=== PATIENT | male | born 1955 | race Caucasian/White ===

== ENCOUNTER 2017-02-03 22:50 | Emergency (ER) | payer MEDICAID ==
[~2017-02-03] VITALS: Ht 172.7 cm; Wt 76.1 kg
[2017-02-03 22:52] VITALS: BP 149/92
[2017-02-03] MEDS ORDERED: IBUPROFEN 200 MG TABLET PO ONE (23:30)
[2017-02-03] MEDS ORDERED: IBUPROFEN 200 MG TABLET ONE (23:33)
== END 2017-02-04 00:57 | disposition home or self-care (01) ==
LOC: ED 02-04 00:51
DX: S62.647A Nondisplaced fracture of proximal phalanx of left little finger, initial encounter for closed fracture (principal); S60.222A Contusion of left hand, initial encounter; S60.042A Contusion of left ring finger without damage to nail, initial encounter; S60.052A Contusion of left little finger without damage to nail, initial encounter; W18.30XA Fall on same level, unspecified, initial encounter; Y93.89 Activity, other specified; Y92.410 Unspecified street and highway as the place of occurrence of the external cause; Y99.9 Unspecified external cause status
CPT/HCPCS: 99284

== ENCOUNTER 2018-05-29 18:10 | Inpatient (IN) | payer OTHER ==
[~2018-05-29] VITALS: Ht 177.8 cm; Wt 79.6 kg
[2018-05-29] MEDS ORDERED: SODIUM CHLORIDE 0.9% 1,000ML IVBOLUS ONE (18:30)
[2018-05-29 18:57] LABS: BASOPHILS # (AUTO) 0.05 x10^3/uL (0-0.1); BASOPHILS % (AUTO) 0 % (0-1); EOSINOPHILS # (AUTO) 0.03 x10^3/uL (0-0.4); EOSINOPHILS % (AUTO) 0 % (1-7); LYMPHOCYTES # (AUTO) 1.11 x10^3/uL (1-3.4); LYMPHOCYTES % (AUTO) 7 % (22-44); MD NO; MEAN CORPUSCULAR HEMOGLOBIN 28.9 pg (27.5-34.5); MEAN CORPUSCULAR VOLUME 84.8 fL (81-97); MEAN PLATELET VOLUME 7.3 fL (7.4-10.4); MONOCYTES # (AUTO) 0.94 x10^3/uL (0.2-0.8); MONOCYTES % (AUTO) 6 % (2-9); NEUTROPHILS # (AUTO) 13.08 x10^3/uL (1.8-6.8); NEUTROPHILS % (AUTO) 86 % (42-75); PLATELET COUNT 449 x10^3/uL (130-400); RED BLOOD COUNT 4.81 x10^6/uL (4.38-5.82); RED CELL DISTRIBUTION WIDTH 13.5 % (9.4-14.8)
[2018-05-29] MEDS ORDERED: AMPICILLIN/SULBACTAM 3 GM in SODIUM CHLORIDE 0.9% 100 ML IV ONE (19:00)
[2018-05-29] MEDS ORDERED: LEVOFLOXACIN/PMX 750MG/150ML 150 ML IV ONE (19:00)
[2018-05-29 19:05] LABS: ALANINE AMINOTRANSFERASE 21 U/L (12-78); ALBUMIN 2.9 g/dL (3.4-5.0); ANION GAP 8 mmol/L (5-15); CALCIUM 8.9 mg/dL (8.5-10.1); CHLORIDE 103 mmol/L (98-107)
[2018-05-29 19:08] LABS: ALKALINE PHOSPHATASE 120 U/L (45-117); BILIRUBIN,TOTAL 0.9 mg/dL (0.2-1.0); TOTAL PROTEIN 8.6 g/dL (6.4-8.2)
[2018-05-29] MEDS ORDERED: LEVOFLOXACIN/PMX 750MG/150ML 150 ML ONE (19:40)
[2018-05-29] MEDS ORDERED: ONDANSETRON 2MG/ML, 2ML IVPush PRN (20:30)
[2018-05-29] MEDS ORDERED: DOCUSATE 100 MG CAPSULE PO PRN (20:30)
[2018-05-29] MEDS ORDERED: ACETAMINOPHEN 325 MG TABLET PO PRN (20:30)
[2018-05-29] MEDS ORDERED: VANCOMYCIN PER PHARMACY MC PRN (20:30)
[2018-05-29] MEDS ORDERED: LABETALOL 5MG/ML, 20ML IVPush PRN (20:30)
[2018-05-29] MEDS ORDERED: ALBUTEROL/IPRATROPIUM 2.5MG/0.5MG, 3 ML ONE (20:38)
[2018-05-29 20:50] VITALS: BP 159/83
[2018-05-29] MEDS ORDERED: ALBUTEROL/IPRATROPIUM 2.5MG/0.5MG, 3 ML NPPB SCH (21:00)
[2018-05-29] MEDS ORDERED: ALBUTEROL/IPRATROPIUM 2.5MG/0.5MG, 3 ML NPPB PRN (21:00)
[2018-05-29] MEDS ORDERED: PHARMACOKINETIC CONSULTATION MC ONE (21:30)
[2018-05-29] MEDS ORDERED: PHARMACOKINETIC MONITORING MC PRN (21:30)
[2018-05-29] MEDS ORDERED: VANCOMYCIN 1,600 MG in SODIUM CHLORIDE 0.9% 250 ML IV ONE (21:30)
[2018-05-29] MEDS: SODIUM CHLORIDE 0.9% 1,000 ML IV SCH (21:44)
[2018-05-29] MEDS: ENOXAPARIN 40 MG/0.4 ML SQ SCH (21:44)
[2018-05-29 22:30] VITALS: BP 125/74
[2018-05-29] MEDS: ALBUTEROL/IPRATROPIUM 2.5MG/0.5MG, 3 ML NPPB SCH (23:00)
[2018-05-30] MEDS: CEFAZOLIN PMX 1GM/50ML 50 ML IV SCH ×4 (00:03→23:39)
[2018-05-30 01:52] VITALS: BP 133/68
[2018-05-30] MEDS: ALBUTEROL/IPRATROPIUM 2.5MG/0.5MG, 3 ML NPPB SCH ×2 (03:00→07:00)
[2018-05-30 04:55] LABS: EOSINOPHILS % (AUTO) 1 % (1-7); MD NO
[2018-05-30 05:23] LABS: CHLORIDE 107 mmol/L (98-107)
[2018-05-30 05:30] LABS: ANION GAP 8 mmol/L (5-15); CALCIUM 8.2 mg/dL (8.5-10.1); CREATININE 1.06 mg/dL (0.7-1.3)
[2018-05-30 05:31] LABS: ALANINE AMINOTRANSFERASE 25 U/L (12-78); ALBUMIN 2.4 g/dL (3.4-5.0); ALKALINE PHOSPHATASE 101 U/L (45-117); BILIRUBIN,TOTAL 0.5 mg/dL (0.2-1.0); TOTAL PROTEIN 7.3 g/dL (6.4-8.2)
[2018-05-30 05:59] LABS: BASOPHILS # (AUTO) 0.01 x10^3/uL (0-0.1); BASOPHILS % (AUTO) 0 % (0-1); EOSINOPHILS # (AUTO) 0.08 x10^3/uL (0-0.4); LYMPHOCYTES # (AUTO) 1.19 x10^3/uL (1-3.4); LYMPHOCYTES % (AUTO) 12 % (22-44); MEAN CORPUSCULAR HGB CONC 33.7 g/dL (33.2-36.2); MEAN PLATELET VOLUME 7.9 fL (7.4-10.4); MONOCYTES # (AUTO) 0.97 x10^3/uL (0.2-0.8); MONOCYTES % (AUTO) 10 % (2-9); NEUTROPHILS # (AUTO) 7.81 x10^3/uL (1.8-6.8); NEUTROPHILS % (AUTO) 78 % (42-75); PLATELET COUNT 377 x10^3/uL (130-400); RED BLOOD COUNT 4.22 x10^6/uL (4.38-5.82)
[2018-05-30 06:18] LABS: HEMOGLOBIN A1C 5.9 % (4.2-6.3)
[2018-05-30 08:20] VITALS: BP 120/79
[2018-05-30] MEDS: SODIUM CHLORIDE 0.9% 1,000 ML IV SCH (08:51)
[2018-05-30] MEDS ORDERED: VANCOMYCIN 1,200 MG in SODIUM CHLORIDE 0.9% 250 ML IV SCH (10:00)
[2018-05-30 14:22] VITALS: BP 152/78
[2018-05-30 19:55] VITALS: BP 151/76
[2018-05-30] MEDS ORDERED: SODIUM CHLORIDE 0.9% 1,000 ML IV SCH (20:13)
[2018-05-30] MEDS: ENOXAPARIN 40 MG/0.4 ML SQ SCH (20:49)
[2018-05-30] MEDS: IBUPROFEN 200 MG TABLET PO PRN (23:36)
[2018-05-31 03:30] VITALS: BP 155/83
[2018-05-31 06:57] VITALS: BP 161/61
[2018-05-31] MEDS: CEFAZOLIN PMX 1GM/50ML 50 ML IV SCH ×2 (08:04→17:10)
[2018-05-31 15:51] VITALS: BP 165/88
[2018-05-31 19:11] VITALS: BP 182/84
[2018-05-31 20:01] VITALS: BP 178/90
[2018-05-31] MEDS: IBUPROFEN 200 MG TABLET PO PRN (20:03)
[2018-05-31] MEDS: ENOXAPARIN 40 MG/0.4 ML SQ SCH (20:03)
[2018-06-01] MEDS: CEFAZOLIN PMX 1GM/50ML 50 ML IV SCH ×2 (00:36→07:44)
[2018-06-01 02:17] VITALS: BP 155/82
[2018-06-01 07:47] VITALS: BP 157/107
[2018-06-01] MEDS: IBUPROFEN 200 MG TABLET PO PRN (07:58)
[2018-06-01] MEDS ORDERED: LISINOPRIL 10 MG TABLET PO SCH (09:00)
[2018-06-01] MEDS ORDERED: CEPHALEXIN 500 MG CAPSULE PO SCH ×2 (11:00→21:00)
[2018-06-01] MEDS ORDERED: CEPHALEXIN 250 MG CAPSULE ONE (11:05)
[2018-06-01 12:13] VITALS: BP 159/79
[2018-06-01] MEDS ORDERED: LISI-167 PO (12:58)
[2018-06-01] MEDS ORDERED: CEPH-376 PO (12:58)
[2018-06-01 14:30] VITALS: BP 148/77
== END 2018-06-01 16:05 | disposition home or self-care (01) | DRG 871 ==
LOC: SUATTDRO 19:52 → ED 19:54 → EDIP 19:55 → 3NW 20:15 → 4NOR 05-30 23:15 → DCLOUNGE 06-01 15:56
PROVIDERS: ADMIT Internal Medicine; ATTEND Internal Medicine
DX: A41.9 Sepsis, unspecified organism (principal); E43 Unspecified severe protein-calorie malnutrition; L03.115 Cellulitis of right lower limb; L03.116 Cellulitis of left lower limb; N17.9 Acute kidney failure, unspecified; F17.210 Nicotine dependence, cigarettes, uncomplicated; F43.9 Reaction to severe stress, unspecified; I87.8 Other specified disorders of veins; J44.9 Chronic obstructive pulmonary disease, unspecified; R73.9 Hyperglycemia, unspecified; Z68.25 Body mass index [BMI] 25.0-25.9, adult; Z71.6 Tobacco abuse counseling
CPT/HCPCS: 36415; 73590; 84145; 99285; J7620; 71045; 80053; 83036; 83605; 85025; 86671; 87015; 87040; 87070; 87077; 87102; 87116; 87147; 87205; 87206; 93005; 94640; 96365; J0295; J0690; J1650; J1956; J3370; J7030; J7050

== ENCOUNTER 2019-10-25 23:41 | Emergency (ER) | payer MEDICAID, OTHER ==
[~2019-10-25] VITALS: Ht 172.7 cm; Wt 75.0 kg
[~2019-10-25 23:41] MED LIST: CEPH-376 PO; LISI-167 PO
[2019-10-26 00:25] LABS: BASOPHILS # (AUTO) 0.05 x10^3/uL (0-0.1); BASOPHILS % (AUTO) 1 % (0-1); EOSINOPHILS # (AUTO) 0.06 x10^3/uL (0-0.4); EOSINOPHILS % (AUTO) 1 % (1-7); LYMPHOCYTES # (AUTO) 1.03 x10^3/uL (1-3.4); LYMPHOCYTES % (AUTO) 13 % (22-44); MD NO; MEAN CORPUSCULAR HEMOGLOBIN 29.6 pg (27.5-34.5); MEAN CORPUSCULAR HGB CONC 32.6 g/dL (33.2-36.2); MEAN CORPUSCULAR VOLUME 90.8 fL (81-97); MEAN PLATELET VOLUME 6.9 fL (7.4-10.4); MONOCYTES # (AUTO) 0.45 x10^3/uL (0.2-0.8); MONOCYTES % (AUTO) 6 % (2-9); NEUTROPHILS # (AUTO) 6.51 x10^3/uL (1.8-6.8); NEUTROPHILS % (AUTO) 80 % (42-75); PLATELET COUNT 332 x10^3/uL (130-400); RED BLOOD COUNT 4.75 x10^6/uL (4.38-5.82); RED CELL DISTRIBUTION WIDTH 13.4 % (9.4-14.8)
[2019-10-26 00:40] LABS: ALANINE AMINOTRANSFERASE 26 U/L (12-78); ALBUMIN 3.9 g/dL (3.4-5.0); ANION GAP 4 mmol/L (5-15); CALCIUM 8.2 mg/dL (8.5-10.1); CHLORIDE 108 mmol/L (98-107); CREATININE 1.42 mg/dL (0.7-1.3)
[2019-10-26 00:44] LABS: ALKALINE PHOSPHATASE 92 U/L (45-117); BILIRUBIN,TOTAL 1.5 mg/dL (0.2-1.0); TOTAL PROTEIN 7.4 g/dL (6.4-8.2); TROPONIN I < 0.015 ng/mL (0.000-0.045)
--- NOTE | 2019-10-26 01:15 | NUR ---
ALL RESULTS BACK CHART UP FOR RECHECK
[2019-10-26] MEDS ORDERED: OMNIPAQUE 350 MG/ML, 100ML BOTTLE ONE (01:22)
--- NOTE | 2019-10-26 01:29 | NUR ---
IV PLACED, PT EDUCATED ON NEED FOR URINE SAMPLE, PT UNABLE TO PEE, REFUSES TO ATTEMPT AT THIS TIME
--- NOTE | 2019-10-26 02:53 | NUR ---
PT EDUCATED ON FURTHER NEED FOR URINE, PT STS UNABLE TO PEE AND DON'T KNOW WHEN HE CAN
--- NOTE | 2019-10-26 02:58 | NUR ---
PT PROVIDED WITH WATER PER
[2019-10-26 03:29] VITALS: BP 150/90
--- NOTE | 2019-10-26 03:29 | NUR ---
BREAK RN: URINE SAMPLE PROVIDED, SENT TO LAB. PT RESTING ON GURNEY IN NAD. DENIES ANY NEEDS AT THIS TIME. AWAITING UA TO PROCESS, WILL CONTINUE TO MONITOR.
[2019-10-26 03:33] LABS: MICROSCOPIC NOT IND
[2019-10-26 03:38] LABS: CULTURE INDICATED? NO
[2019-10-26 03:45] LABS: AMPHETAMINE SCREEN, URINE Positive (Negative); BARBITURATE SCREEN, URINE Negative (Negative); BENZODIAZEPINE SCREEN, URINE Negative (Negative); CANNABINOID SCREEN, URINE Negative (Negative); COCAINE SCREEN, URINE Negative (Negative); METHADONE SCREEN, URINE Negative (Negative); OPIATE SCREEN, URINE Negative (Negative)
== END 2019-10-26 04:09 | disposition home or self-care (01) ==
LOC: ED 10-26 00:47
DX: R06.00 Dyspnea, unspecified (principal); F15.129 Other stimulant abuse with intoxication, unspecified; F41.1 Generalized anxiety disorder; F17.200 Nicotine dependence, unspecified, uncomplicated; Z72.9 Problem related to lifestyle, unspecified
CPT/HCPCS: 36415; 71045; 71275; 80053; 80307; 81003; 83880; 84484; 85025; 93005; 99284; Q9967